=== PATIENT | female | born 1990 | race Caucasian/White ===

== ENCOUNTER 2017-03-02 09:05 | Emergency (ER) | payer MEDICAID ==
[~2017-03-02] VITALS: Ht 160 cm; Wt 86.2 kg
[2017-03-02 10:34] VITALS: BP 119/85
== END 2017-03-02 10:58 | disposition home or self-care (01) ==
LOC: ER 09:05
DX: R76.11 Nonspecific reaction to tuberculin skin test without active tuberculosis (principal)
CPT/HCPCS: 71020

== ENCOUNTER 2017-03-31 18:10 | Emergency (ER) | payer MEDICAID ==
[~2017-03-31] VITALS: Ht 160 cm; Wt 83.9 kg
[2017-03-31 18:16] VITALS: BP 126/84
== END 2017-03-31 21:47 | disposition left against medical advice (07) ==
LOC: ER 18:20
DX: R10.9 Unspecified abdominal pain (principal); R11.0 Nausea; Z53.21 Procedure and treatment not carried out due to patient leaving prior to being seen by health care provider